=== PATIENT | female | born 1940 | race Caucasian/White ===

== ENCOUNTER 2023-11-16 21:44 | Outpatient (CLI) | payer MEDICARE, OTHER | END 2023-11-16 23:59 | disposition critical access hospital (66) | LOC: EMS 21:44 | DX: R55 Syncope and collapse (principal); R42 Dizziness and giddiness | CPT/HCPCS: A0425; A0429 ==

== ENCOUNTER 2023-11-16 22:01 | Emergency (ER) | payer MEDICARE, OTHER ==
--- NOTE | 2023-11-16 22:09 | ED Physician Documentation ---
History of Present Illness - Stated complaint Stated Complaint: FELL, HEAD INJURY, LT ELBOW/WRIST PAIN - History obtained from History obtained from: Patient, EMS - Additonal information Additional information: 83-year-old woman with history of intermittent syncope and atrial fibrillation. She is not anticoagulated because she says she is rarely in atrial fibrillation. She says she was out of her usual routine, she has been painting outside and therefore think she is dehydrated and also had her usual bourbon and water drinks in the pleural around dinnertime. She got up to go to the bathroom and felt presyncopal and fell initially with her elbow against the door frame and then hit her head. There is no loss of consciousness. She has a lot of elbow pain especially more so than headache but she does have a headache. Paramedics noted her to be orthostatic with blood pressure systolic about 120 but when they tried to get her up it dropped down to the 80s. She was also noted to be in atrial fibrillation prehospital, but was not really aware of it. She denies chest pain or trouble breathing. PD PAST MEDICAL HISTORY - Present Medications Home Medications: Ambulatory Orders Medication Instructions Recorded Confirmed Amox/Clav 875/125 [Augmentin] 1 each PO Q12H #20 tablet 11/16/23 HYDROcod/ACETAM 5/325 [Perry 5/325] 1 - 2 tab PO Q6H PRN #15 tablet 11/16/23 Metoprolol Tartrate [Lopressor] 25 mg PO BID #60 tablet 11/16/23 - Allergies Allergies/Adverse Reactions: Allergies Allergy/AdvReac Type Severity Reaction Status Date / Time No Known Drug Allergies Allergy Verified 11/16/23 22:11 PD ED PE NORMAL - Vitals Vital signs reviewed: Yes - General General: Alert and oriented X 3, No acute distress - HEENT HEENT: PERRL, EOMI, Other (Small hematoma on the posterior upper occiput) - Neck Neck: No bony TTP - Cardiac Cardiac: Other (Irregularly irregular without murmur) - Respiratory Respiratory: No respiratory distress, Clear bilaterally - Abdomen Abdomen: Non tender - Back Back: No CVA TTP, No spinal TTP - Derm Derm: Normal color, Warm and dry - Extremities Extremities: Other (Quite tender about the left elbow and unable to range it at all. Wrist is minimally tender on the left. No snuffbox tenderness.) - Neuro Neuro: Alert and oriented X 3, Normal speech Eye Opening: Spontaneous Motor: Obeys Commands Verbal: Oriented GCS Score: 15 - Psych Psych: Normal mood, Normal affect Results - Vitals Vitals: Vital Signs - 24 hr 11/16/23 11/16/23 22:08 22:34 Temperature 36.8 C Heart Rate 113 H 105 H Respiratory 18 18 Rate Blood Pressure 118/59 L O2 Saturation 94 93 Oxygen O2 Source Room air - EKG (time done) 6 EKG releavant findings:: EKG personally interpreted by author of this note. Relevant findings are: Rate: Rate (enter#) (99) Rhythm: Atrial fibrillation [place]: Normal QRS: Normal Ischemia: Normal ST segments - Labs Labs: Laboratory Tests 11/16/23 11/16/23 22:24 22:24 WBC 12.1 H RBC 4.16 L Hgb 12.7 Hct 39.1 MCV 94.0 MCH 30.5 MCHC 32.5 RDW 13.6 Plt Count 208 MPV 10.3 Neut # (Auto) 9.3 H Lymph # (Auto) 1.9 [place] # (Auto) 0.8 Eos # (Auto) 0.1 Baso # (Auto) 0.0 Absolute Nucleated RBC 0.00 Nucleated RBC % 0.0 Sodium 139 Potassium 3.4 L Chloride 103 Carbon Dioxide 26 Anion Gap 10.0 BUN 12 Creatinine 1.1 Estimated GFR (MDRD) 48 L Glucose 147 H Calcium 10.0 Total Bilirubin 0.3 AST 20 ALT 14 Alkaline Phosphatase 63 Total Protein 6.8 Albumin 4.0 Globulin 2.8 Albumin/Globulin Ratio 1.4 Ethyl Alcohol 29.8 - Rads (name of study) CT head spine Relevant Findings:: Final report received (No traumatic findings. She does have incidental findings including sinusitis and thyroid nodule.), EMP independent interpretation of test L wrist / elbow Relevant Findings:: Final report received (Mildly, and noted impacted intra- articular fracture of the left distal radius and triquetral fracture as well as a medial proximal ulnar fracture), EMP independent interpretation of test Procedures - Splint (location) - Minor LUE Splint applied by: Physician Type of splint: Long arm, Sugar tong Other: Patient tolerated well, No complications, Neurovascular intact PD Medical Decision Making - ED course ED course: This is an 83-year-old woman with history of intermittent A-fib not anticoagulated who fell and injured her head but really has more pain in the left elbow and wrist. Relevant imaging demonstrates no evidence of trauma on CTs of the head and cervical spine but she does have left wrist and elbow fractures. She was placed in a fiberglass sugar-tong splint with a sling. At times here she was modestly tachycardic and received a dose of IV metoprolol and oral as well. She was in A-fib. It is unclear when she went into A-fib so I did not offer cardioversion. She said back in 2007 they attempted cardioversion with MARLENA but could not get her deep enough with sedation so ended up treating her medically and it sounds like maybe she was chemically cardioverted. We discussed the incidental findings on CTs specifically the right thyroid nodule and sinus disease. She is symptomatic from the sinus disease so we will start Augmentin. Departure - Departure Disposition: 01 Home, Self Care Clinical Impression: Thyroid nodule Afib Qualifiers: Atrial fibrillation type: unspecified Qualified Code(s): I48.91 - Unspecified atrial fibrillation Left elbow contusion Qualifiers: Encounter type: initial encounter Qualified Code(s): S50.02XA - Contusion of left elbow, initial encounter Left wrist fracture Qualifiers: Encounter type: initial encounter Fracture type: closed Qualified Code(s): S62.102A - Fracture of unspecified carpal bone, left wrist, initial encounter for closed fracture Fall Qualifiers: Encounter type: initial encounter Qualified Code(s): W19.XXXA - Unspecified fall, initial encounter Sinusitis Qualifiers: Sinusitis location: maxillary Chronicity: acute Recurrence: recurrent Qualified Code(s): J01.01 - Acute recurrent maxillary sinusitis Head injury Qualifiers: Encounter type: initial encounter Qualified Code(s): S09.90XA - Unspecified injury of head, initial encounter Condition: Good Record reviewed to determine appropriate education?: Yes Instructions: ED Fx Elbow, ED Afib, ED Sinusitis Abx Tx Follow-Up: Orthopedic Care [Provider Group] Prescriptions: Amox/Clav 875/125 [Augmentin] 1 each PO Q12H #20 tablet Metoprolol Tartrate [Lopressor] 25 mg PO BID #60 tablet HYDROcod/ACETAM 5/325 [[place] 5/325] 1 - 2 tab PO Q6H PRN #15 tablet PRN Reason: Pain Comments: You are seen today for a fall related to a dizzy episode. We did find you to be in atrial fibrillation with somewhat elevated rates. For that I am putting you on metoprolol and you should call your parcel wrapper tomorrow to discuss follow- up, anticoagulation, and cardioversion if they think it is appropriate. We also found that she had left wrist and elbow fractures. Keep the splint on and dry and wear the sling for comfort. Follow-up with our orthopedic surgeons in about a week, call tomorrow for an appointment, the numbers on this form. Finally there were incidental findings on your imaging, specifically sinus disease and a thyroid nodule. Discussed these with your primary care physician with consideration for follow-up thyroid ultrasound. I am prescribing a short course of narcotic pain medication for you. These are potentially dangerous and addictive medications that should be used carefully. These medications may constipate you. Take an cacm-kmi-rnxysbj stool softener (docusate) twice daily with plenty of water while taking these medications. If you go 24 hours without a bowel movement, take kxtb-kxw-matyfjk miralax, per package instructions. Do not drink or drive while taking these medications. If you received narcotic or sedating medications while in the emergency department, do not drive for 24 hours. Store this medication in a safe, secure place and out of reach of children. It is a violation of federal law to give or sell this medication to another person or to use in a manner other than prescribed. The ED will not refill narcotic prescriptions, including prescriptions lost or stolen. To dispose of unwanted medications: 1. [facility] provides a drop box for medication in pill form only (no liquids) 8:00 am to 4:30 p.m. Tuesday-Tuesday in the lobby of the [facility], [address] [place] [address]. Empty pills into ziplock bag before disposal. Call [phone] for information. 2.[employer] is a free service available to all [facility] residents. Go to [email or web address] Note that many narcotic pain relievers also contain Tylenol/acetaminophen. Please ensure that your total dose of acetaminophen from all sources does not exceed 3 g (3000 mg) per day.
[2023-11-16 22:32] LABS: BASOPHILS % (AUTO) 0.2 %; EOSINOPHILS # (AUTO) 0.1 10^3/uL (0.0-0.7); EOSINOPHILS % (AUTO) 0.9 %; HCT - HEMATOCRIT 39.1 % (37.0-47.0); HGB - HEMOGLOBIN 12.7 g/dL (12.0-16.0); LYMPHOCYTES # (AUTO) 1.9 10^3/uL (1.5-3.5); MEAN CORPUSCULAR HEMOGLOBIN 30.5 pg (27.0-31.0); MEAN CORPUSCULAR HGB CONC 32.5 g/dL (32.0-36.0); MEAN PLATELET VOLUME 10.3 fL (7.9-10.8); MONOCYTES # (AUTO) 0.8 10^3/uL (0.0-1.0); MONOCYTES % (AUTO) 6.2 %; NEUTROPHILS # (AUTO) 9.3 10^3/uL (1.5-6.6); NEUTROPHILS % (AUTO) 76.4 %; PLT - PLATELET COUNT 208 10^3/uL (130-450); RED BLOOD COUNT 4.16 10^6/uL (4.20-5.40); RED CELL DISTRIBUTION WIDTH 13.6 % (12.0-15.0); WHITE BLOOD COUNT 12.1 x10^3/uL (4.8-10.8)
[2023-11-16] MEDS: SODIUM CHLORIDE 0.9% 1,000 ML IV STA (22:50)
[2023-11-16] MEDS: HYDROcod/ACETAM 5/325 MG TABLET PO STA (22:50)
[2023-11-16 23:00] LABS: ALBUMIN/GLOBULIN RATIO 1.4 (1.0-2.2); BILIRUBIN,TOTAL 0.3 mg/dL (0.2-1.0); CREATININE 1.1 mg/dL (0.6-1.3); ETOH - ETHANOL 29.8 mg/dL; POTASSIUM 3.4 mmol/L (3.5-4.5); TOTAL PROTEIN 6.8 g/dL (6.4-8.9)
--- NOTE | 2023-11-16 23:35 | CT Report ---
PROCEDURE: Head WO INDICATIONS: HEAD INJ TECHNIQUE: Noncontrast 4.5 mm thick angled axial sections acquired from the foramen magnum to the vertex. For r adiation dose reduction, the following was used: automated exposure control, adjustment of mA and/or kV according to patient size. COMPARISON: None. FINDINGS: Image quality: Diagnostic. CSF spaces: Basal cisterns are patent. No extra-axial fluid collections. Ventricles are normal in size and shape. Brain: No midline shift. No intracranial masses or hemorrhage. No mass effect. Saunders-white matter i nterface is normal. There cerebral volume loss for age with resultant ventricular and sulcal prominen ce. There are periventricular and deep white matter chronic small vessel ischemic changes. Atheroscle rotic calcifications are noted in the intracranial segments of the bilateral internal carotid arterie s. Skull and face: Calvarium and visualized facial bones are intact, without suspicious lesions. Sinuses: Complete opacification left maxillary sinus. Other visualized paranasal sinuses and mastoids are clear. IMPRESSION: No acute intracranial pathology. Complete opacification of the left maxillary sinus. Reviewed by: Marquis Zhao MD on 11/16/2023 11:34 PM PDT Approved by: Marquis Zhao MD on 11/16/2023 11:34 PM PDT Station ID: [id number]
[2023-11-16] MEDS: HYDROmorphone 1 MG/ML CARPUJECT IVP STA (23:37)
--- NOTE | 2023-11-16 23:39 | CT Report ---
PROCEDURE: Cervical Spine WO INDICATIONS: HEAD INJ TECHNIQUE: Noncontrast 3 mm thick sections acquired from the skull base to the T4 level. Sagittal and coronal r eformats were then constructed. For radiation dose reduction, the following was used: automated exp osure control, adjustment of mA and/or kV according to patient size. COMPARISON: None. FINDINGS: Image quality: Diagnostic. Bones: No acute fractures or dislocations. No acute compression fractures of the vertebral bodies. Craniocervical junction is intact. C1-C2 relationship is preserved. Visualized superior ribs are inta ct. Severe multilevel cervical spondylosis. Soft tissues: Prevertebral soft tissues are normal in thickness. No paravertebral hematomas. No a pical pneumothoraces. There is moderate enlargement of the right thyroid lobe with suggestion of ill -defined large right thyroid nodule. No adenopathy. Lung apices are clear. Complete opacification of the left maxillary sinus. Mild mucosal thickening of the inferior right maxillary sinus. IMPRESSION: CT cervical spine without acute fracture or traumatic malalignment. Severe multilevel cervical spondylosis. Moderately enlarged right thyroid lobe with suggestion of ill-defined large thyroid nodule. Recommend outpatient thyroid ultrasound for further characterization. Bilateral maxillary sinus disease worse on the left. Reviewed by: Marquis Zhao MD on 11/16/2023 11:37 PM PDT Approved by: Marquis Zhao MD on 11/16/2023 11:37 PM PDT Station ID: [id number]
--- NOTE | 2023-11-16 23:41 | XRAY Report ---
PROCEDURE: Elbow 3+V LT INDICATIONS: ELBOW INJ TECHNIQUE: 3 views of the elbow were acquired. COMPARISON: None. FINDINGS: Bones: There is a mildly displaced fracture involving the medial aspect of the proximal ulna which a ppears extending through the coronoid process. Radiocapitellar joint appears intact. Small enthesophy te over the posterior olecranon. Soft tissues: Moderate-sized effusion. No suspicious soft tissue calcifications or masses. IMPRESSION: Acute, mildly displaced fracture of the medial proximal ulna which involves the coronoid process. Mod erate elbow joint effusion. Reviewed by: Marquis Zhao MD on 11/16/2023 11:40 PM PDT Approved by: Marquis Zhao MD on 11/16/2023 11:40 PM PDT Station ID: [id number]
--- NOTE | 2023-11-16 23:43 | XRAY Report ---
PROCEDURE: Wrist 3+V LT INDICATIONS: WRIST INJ TECHNIQUE: 3 views of the wrist were acquired. COMPARISON: None. FINDINGS: Bones: Mildly comminuted, impacted intra-articular fracture of the distal left radius. Possible nond isplaced fracture of the distal scaphoid. Mildly displaced fracture of the dorsal triquetrum. Advance d degenerative changes of the left wrist most pronounced at the first carpometacarpal joint and trisc aphe joint. Soft tissues: No suspicious soft tissue calcifications or masses. IMPRESSION: Mildly comminuted, impacted intra-articular fracture of the distal left radius. Possible nondisplaced fracture of the distal scaphoid. Dorsal triquetral fracture. Advanced degenerative changes of the left wrist. Reviewed by: Marquis Zhao MD on 11/16/2023 11:41 PM PDT Approved by: Marquis Zhao MD on 11/16/2023 11:41 PM PDT Station ID: [id number]
[2023-11-17] MEDS: METOPROLOL TARTRATE 50 MG TABLET PO STA (00:18)
[2023-11-17] MEDS: METOPROLOL 5 MG/5 ML VIAL IVP STA (00:20)
[2023-11-17] MEDS: oxyCODONE/ACET 5/325 Prepack 4 PO STA (01:09)
[2023-11-17 01:14] VITALS: O2SAT 92
[2023-11-17 01:30] VITALS: BP 127/80
--- NOTE | 2023-11-17 12:47 | ED Physician Documentation ---
ED Addendum - Addendum Addendum: 11/17/23 12:46 The prescription was not electronically sent by the original provider, therefore the prescriptions were resent electronically. Any controlled substances had to be cancelled and reordered in order to be sent electronically.
== END 2023-11-17 01:35 | disposition home or self-care (01) ==
LOC: ED 22:01
DX: S09.90XA Unspecified injury of head, initial encounter (principal); S00.03XA Contusion of scalp, initial encounter; S52.042A Displaced fracture of coronoid process of left ulna, initial encounter for closed fracture; S52.572A Other intraarticular fracture of lower end of left radius, initial encounter for closed fracture; S50.02XA Contusion of left elbow, initial encounter; W18.39XA Other fall on same level, initial encounter; Y93.89 Activity, other specified; I48.91 Unspecified atrial fibrillation; E04.1 Nontoxic single thyroid nodule; J01.01 Acute recurrent maxillary sinusitis; Z79.01 Long term (current) use of anticoagulants
CPT/HCPCS: 29105; 36415; 70450; 72125; 73080; 73110; 80053; 85025; 93005; 96361; 96374; 96375; 99284; A9270; G0480; J1170; 82077

== ENCOUNTER 2023-12-06 12:00 | Outpatient (CLI) | payer MEDICARE, OTHER ==
--- NOTE | 2023-12-06 18:54 | XRAY Report ---
Hip w/Pelvis 2-3V RT HISTORY: 83 years of age, HIP PAIN, RIGHT TECHNIQUE: Hip w/Pelvis 2-3V RT COMPARISON: None. FINDINGS/IMPRESSION: Joint spaces of bilateral hips are well-maintained. No acute fracture or dislocation of the right hip . Reviewed by: Yolanda Grissom MD on 12/06/2023 6:53 PM PDT Approved by: Yolanda Grissom MD on 12/06/2023 6:53 PM PDT Station ID: [id number]
--- NOTE | 2023-12-06 18:55 | XRAY Report ---
Lumbar Spine 2-3V HISTORY: 83 years of age, LOW BACK PAIN, ACUTE TECHNIQUE: Lumbar Spine 2-3V COMPARISON: None. FINDINGS/IMPRESSION: Mild dextrocurvature of the lumbar spine. Mild retrolisthesis of L5 on S1. Mild superior endplate fra cture of L1, age indeterminant. 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 M oderate lower lumbar facet arthropathy. Severe atherosclerotic calcification of the abdominal aorta. Reviewed by: Yolanda Grissom MD on 12/06/2023 6:54 PM PDT Approved by: Yolanda Grissom MD on 12/06/2023 6:54 PM PDT Station ID: [id number]
== END 2023-12-06 12:15 | disposition home or self-care (01) ==
LOC: DI.N 12:00
PROVIDERS: ATTEND Physician Assistant Medical
DX: M25.551 Pain in right hip (principal); S32.019A Unspecified fracture of first lumbar vertebra, initial encounter for closed fracture; M47.816 Spondylosis without myelopathy or radiculopathy, lumbar region; M51.36 Other intervertebral disc degeneration, lumbar region; M43.17 Spondylolisthesis, lumbosacral region; I70.0 Atherosclerosis of aorta

== ENCOUNTER 2023-12-16 21:33 | Outpatient (CLI) | payer MEDICARE, OTHER | END 2023-12-16 23:59 | disposition critical access hospital (66) | LOC: EMS 21:33 | DX: R55 Syncope and collapse (principal); R51.9 Headache, unspecified; I95.1 Orthostatic hypotension | CPT/HCPCS: A0425; A0427 ==

== ENCOUNTER 2023-12-16 21:53 | Emergency (ER) | payer MEDICARE, OTHER ==
--- NOTE | 2023-12-16 22:04 | ED Physician Documentation ---
History of Present Illness - Stated complaint Stated Complaint: NEAR SYNCOPE - History obtained from History obtained from: Patient, EMS - Additonal information Additional information: 83-year-old woman with history of intermittent syncope and atrial fibrillation not anticoagulated. She had an orthostatic episode about a month ago and fell and broke her wrist. This evening she was in her usual state of health playing some cards and she drank a half of bourbon and water and then she felt quite dizzy. She did not pass out. Paramedics noted her to be orthostatic with a supine blood pressure of 90 and a standing blood pressure of 70. She denies chest pain or trouble breathing. No injury with this episode. PD PAST MEDICAL HISTORY - Past Surgical History Past Surgical History: Yes - Present Medications Home Medications: Ambulatory Orders Medication Instructions Recorded Confirmed Amox/Clav 875/125 [Augmentin] 1 each PO Q12H #20 tablet 11/16/23 Metoprolol Tartrate [Lopressor] 25 mg PO BID #60 tablet 11/16/23 HYDROcod/ACETAM 5/325 [[place] 5/325] 1 - 2 ea PO Q6H PRN #14 tablet 11/17/23 - Allergies Allergies/Adverse Reactions: Allergies Allergy/AdvReac Type Severity Reaction Status Date / Time No Known Drug Allergies Allergy Verified 12/16/23 22:14 - Social History Does the pt smoke?: No Smoking Status: Never smoker PD ED PE NORMAL - Vitals Vital signs reviewed: Yes - General General: Alert and oriented X 3, No acute distress - Neck Neck: Supple, no meningeal sign, No bony TTP - Cardiac Cardiac: RRR, No murmur - Respiratory Respiratory: No respiratory distress, Clear bilaterally - Abdomen Abdomen: Soft, Non tender - Back Back: No CVA TTP, No spinal TTP - Derm Derm: Normal color, Warm and dry - Extremities Extremities: No edema, No calf tenderness / cord - Neuro Neuro: Alert and oriented X 3, No motor deficit, No sensory deficit, Normal speech Eye Opening: Spontaneous Motor: Obeys Commands Verbal: Oriented GCS Score: 15 Results - Vitals Vitals: Vital Signs - 24 hr 12/16/23 12/16/23 22:00 22:06 Temperature 37.2 C Heart Rate 84 79 Respiratory 16 21 Rate Blood Pressure 149/69 H 141/68 H O2 Saturation 96 94 Oxygen O2 Source Room air - EKG (time done) 2204 EKG releavant findings:: EKG personally interpreted by author of this note. Relevant findings are: Rate: Rate (enter#) (76) Rhythm: NSR [place]: RAD Intervals: Normal [place] QRS: Normal Ischemia: Normal ST segments - Labs Labs: Laboratory Tests 12/16/23 12/16/23 22:25 22:25 WBC 12.5 H RBC 3.51 L Hgb 10.5 L Hct 34.5 L MCV 98.3 MCH 29.9 MCHC 30.4 L RDW 13.6 Plt Count 195 MPV 10.5 Neut # (Auto) 8.7 H Lymph # (Auto) 2.1 [place] # (Auto) 1.5 H Eos # (Auto) 0.2 Baso # (Auto) 0.0 Absolute Nucleated RBC 0.00 Nucleated RBC % 0.0 Sodium 139 Potassium 3.2 L Chloride 109 Carbon Dioxide 23 Anion Gap 7.0 BUN 13 Creatinine 0.8 Estimated GFR (MDRD) 69 L Glucose 94 Calcium 7.6 L Magnesium 1.5 L Total Bilirubin 0.4 AST 12 ALT 7 L Alkaline Phosphatase 81 Total Protein 5.8 L Albumin 3.2 Globulin 2.6 Albumin/Globulin Ratio 1.2 PD Medical Decision Making - ED course ED course: 83-year-old woman presents with orthostatic presyncope, no injury this time but she did break her wrist about a month ago when she syncopized. She says she has had extensive workups for these including an electroencephalogram's, prolonged Holter monitoring etc. without pertinent positive findings. Labs are ordered and she is given IV fluids. 83-year-old woman with recurrent syncope and presyncope had presyncope tonight with orthostasis pelite feeling better after IV fluids. Diagnostic workup demonstrates CBC with mild nonspecific leukocytosis and CMP showing mild hypo calcemia, hypokalemia, and hypomagnesemia which were repleted orally. Departure - Departure Disposition: 01 Home, Self Care Clinical Impression: Near syncope, Orthostasis Condition: Stable Record reviewed to determine appropriate education?: Yes Instructions: ED Hypotension Orthostatic Comments: Drink plenty of (non-alcoholic) fluids. No concerning diagnostic findings were noted tonight with the exception of mildly low potassium, calcium, and magnesium levels for which she did receive supplementation. Call your doctor to arrange a follow-up appointment, make the next available appointment. In the interim, return anytime if worse or if new symptoms develop.
[2023-12-16] MEDS: SODIUM CHLORIDE 0.9% 1,000 ML IV STA (22:05)
[2023-12-16 22:29] LABS: BASOPHILS % (AUTO) 0.2 %; EOSINOPHILS # (AUTO) 0.2 10^3/uL (0.0-0.7); EOSINOPHILS % (AUTO) 1.3 %; HCT - HEMATOCRIT 34.5 % (37.0-47.0); HGB - HEMOGLOBIN 10.5 g/dL (12.0-16.0); LYMPHOCYTES # (AUTO) 2.1 10^3/uL (1.5-3.5); LYMPHOCYTES % (AUTO) 16.7 %; MEAN CORPUSCULAR HEMOGLOBIN 29.9 pg (27.0-31.0); MEAN CORPUSCULAR HGB CONC 30.4 g/dL (32.0-36.0); MEAN CORPUSCULAR VOLUME 98.3 fL (81.0-99.0); MEAN PLATELET VOLUME 10.5 fL (7.9-10.8); MONOCYTES # (AUTO) 1.5 10^3/uL (0.0-1.0); MONOCYTES % (AUTO) 11.9 %; NEUTROPHILS # (AUTO) 8.7 10^3/uL (1.5-6.6); NEUTROPHILS % (AUTO) 69.6 %; PLT - PLATELET COUNT 195 10^3/uL (130-450); RED BLOOD COUNT 3.51 10^6/uL (4.20-5.40); RED CELL DISTRIBUTION WIDTH 13.6 % (12.0-15.0); WHITE BLOOD COUNT 12.5 x10^3/uL (4.8-10.8)
[2023-12-16 22:43] LABS: ALBUMIN 3.2 g/dL (3.2-5.5); ALBUMIN/GLOBULIN RATIO 1.2 (1.0-2.2); BILIRUBIN,TOTAL 0.4 mg/dL (0.2-1.0); CALCIUM 7.6 mg/dL (8.5-10.3); CREATININE 0.8 mg/dL (0.6-1.3); MAGNESIUM 1.5 mg/dL (1.7-2.3); POTASSIUM 3.2 mmol/L (3.5-4.5); TOTAL PROTEIN 5.8 g/dL (6.4-8.9)
[2023-12-16] MEDS: POTASSIUM BICARB 25 MEQ TABLET PO STA (23:10)
[2023-12-16] MEDS: MAGNESIUM OXIDE 400 MG TABLET PO STA (23:10)
[2023-12-16] MEDS: CALCIUM CARBONATE CHEW 500 MG TABLET PO STA (23:10)
[2023-12-16 23:30] VITALS: BP 136/65; O2SAT 98
== END 2023-12-16 23:28 | disposition home or self-care (01) ==
LOC: EDUNIT# → ED 21:53
DX: R55 Syncope and collapse (principal)
CPT/HCPCS: 36415; 80053; 83735; 85025; 93005; 99283; 99284; A9270